=== PATIENT | male | born 1950 | race African-American/Black ===

== ENCOUNTER 2017-03-06 20:34 | Emergency (ER) | payer SELFPAY ==
[~2017-03-06] VITALS: Ht 172.7 cm; Wt 90.7 kg
[2017-03-06 20:44] VITALS: BP 189/106
== END 2017-03-06 20:48 | disposition left against medical advice (07) ==
LOC: ER 20:36
DX: T78.40XA Allergy, unspecified, initial encounter (principal); Z53.21 Procedure and treatment not carried out due to patient leaving prior to being seen by health care provider

== ENCOUNTER 2017-07-03 06:46 | Emergency (ER) | payer OTHER ==
[~2017-07-03] VITALS: Ht 172.7 cm; Wt 88.5 kg
[2017-07-03 06:59] VITALS: BP 150/96
== END 2017-07-03 12:51 | disposition left against medical advice (07) ==
LOC: ER 06:46
DX: S01.21XA Laceration without foreign body of nose, initial encounter (principal); Z53.21 Procedure and treatment not carried out due to patient leaving prior to being seen by health care provider; X58.XXXA Exposure to other specified factors, initial encounter; Y93.89 Activity, other specified; Y99.8 Other external cause status; Y92.89 Other specified places as the place of occurrence of the external cause

== ENCOUNTER → 2018-08-28 | Outpatient (CLI) | payer MEDICARE, OTHER ==
[2018-08-28 10:25] LABS: Basophils # (auto) 0 uL; Basophils % (auto) 0.9 % (0.0-2.0); Eosinophils # (auto) 0.3 uL; Eosinophils % (auto) 7.5 % (0.0-7.0); Hematocrit 38.9 % (41.0-53.0); Hemoglobin 12.6 g/dL (13.5-17.5); Lymphocytes # (auto) 1.5 uL; Lymphocytes % (auto) 38.3 % (10.0-50.0); Mean Corpuscular Hemoglobin 29.1 pg (28.0-32.0); Mean Corpuscular Hgb Conc. 32.4 g/dL (32.0-36.0); Mean Corpuscular Volume 89.7 fL (80.0-100.0); Monocytes # (auto) 0.6 uL; Monocytes % (auto) 14.6 % (0.0-12.0); Neutrophils # (auto) 1.5 uL; Neutrophils % (auto) 38.7 % (37.0-80.0); Nucleated Red Blood Cells % 0.1 %; Platelet Count (auto) 306 10^3/uL (140-450); Red Blood Cells 4.33 10^6/uL (4.5-5.90); Red Cell Distribution Width 14.8 % (11.8-14.3); White Blood Cell 3.8 10^3/uL (4.4-10.8)
[2018-08-28 11:05] LABS: Potassium 4.2 mmol/L (3.5-5.1)
[2018-08-28 11:35] LABS: Albumin 3.5 g/dL (3.4-5.0); BUN/Creatinine Ratio 9.5; Bilirubin, Total 0.2 mg/dL (0.2-1.0); Calcium 8.3 mg/dL (8.5-10.1); Total Protein 7.1 g/dL (6.4-8.2)
== END | disposition home or self-care (01) ==
LOC: LAB 10:00
PROVIDERS: ATTEND Physician Assistant
DX: E78.49 Other hyperlipidemia (principal); E53.8 Deficiency of other specified B group vitamins
CPT/HCPCS: 36415; 80053; 80061; 85025

== ENCOUNTER → 2019-05-22 | Outpatient (CLI) | payer MEDICARE, OTHER | END | disposition home or self-care (01) | LOC: LAB 07:33 | PROVIDERS: ATTEND Internal Medicine | DX: R10.9 Unspecified abdominal pain (principal) | CPT/HCPCS: 36415; 82565; 84520 ==

== ENCOUNTER → 2019-07-16 | Day surgery (SDC) | payer MEDICARE, OTHER ==
[2019-07-12 10:53] LABS: Urine WBC None Seen /hpf (0 - 3)
[2019-07-12 10:55] LABS: Basophils # (auto) 0 uL; Basophils % (auto) 0.7 % (0.0-2.0); Eosinophils # (auto) 0.3 uL; Eosinophils % (auto) 9.6 % (0.0-7.0); Hemoglobin 14.2 g/dL (13.5-17.5); Lymphocytes # (auto) 0.8 uL; Lymphocytes % (auto) 25.7 % (10.0-50.0); Mean Corpuscular Hemoglobin 29.7 pg (28.0-32.0); Mean Corpuscular Hgb Conc. 33.7 g/dL (32.0-36.0); Mean Corpuscular Volume 88.2 fL (80.0-100.0); Monocytes # (auto) 0.4 uL; Monocytes % (auto) 11.8 % (0.0-12.0); Neutrophils # (auto) 1.6 uL; Neutrophils % (auto) 52.2 % (37.0-80.0); Platelet Count (auto) 312 10^3/uL (140-450); Red Blood Cells 4.76 10^6/uL (4.5-5.90); Red Cell Distribution Width 13.2 % (11.8-14.3)
[2019-07-12 11:07] LABS: Urine Bacteria FEW /hpf (None Seen); Urine Blood Negative /uL (Negative); Urine Hyaline Cast FEW /lpf (0 - 2); Urine Specific Gravity 1.013 (1.001-1.035)
[2019-07-12 11:10] LABS: INR 0.99 (0.9-1.15); Partial Thromboplastin Time 28.2 sec (23.64-32.05)
[2019-07-12 11:22] LABS: Albumin 3.6 g/dL (3.4-5.0); Calcium 9.1 mg/dL (8.5-10.1); Potassium 4.2 mmol/L (3.5-5.1)
[2019-07-12 11:27] LABS: BUN/Creatinine Ratio 7.1; Bilirubin, Total 0.4 mg/dL (0.2-1.0); Total Protein 7.9 g/dL (6.4-8.2)
[~2019-07-16] VITALS: Ht 172.7 cm; Wt 86.2 kg
[~2019-07-16] MED LIST: ATOR40TA52 PO; CETI10TA80 PO; CHOL100055 PO; DICL1GEL35 TD; DOXE10CA PO; FERR324T17 PO; HYDROmorphone HCL 2 MG/ML VL IV PRN; LIDOCAINE 1% HCL (LOCAL ANESTH.) INJ 20ML MDV ONE; MIDAZOLAM HCL 1MG/1ML-2 ML VIAL ONE; ONDANSETRON HCL 4 MG/2 ML VIAL IV PRN; ONDANSETRON HCL 4 MG/2 ML VIAL ONE; PREG150C PO; PROPOFOL 10 MG/ML 20 ML IV ONE; SILD100T57 PO; SODIUM CHLORIDE LOCK 10 ML ONE; SUCCINYLCHOLINE CHLORIDE 20 MG/ML 10ML VIAL IV ONE; fentaNYL CITRATE 100 MCG/2 ML VL IV PRN; fentaNYL CITRATE 100 MCG/2 ML VL ONE
[2019-07-16 10:47] VITALS: BP 120/82
== END | disposition home or self-care (01) ==
LOC: GI 08:26
PROVIDERS: ATTEND Internal Medicine Gastroenterology
DX: Z12.11 Encounter for screening for malignant neoplasm of colon (principal); K57.30 Diverticulosis of large intestine without perforation or abscess without bleeding; I12.9 Hypertensive chronic kidney disease with stage 1 through stage 4 chronic kidney disease, or unspecified chronic kidney disease; N18.2 Chronic kidney disease, stage 2 (mild); D64.9 Anemia, unspecified; E78.5 Hyperlipidemia, unspecified; F32.9 Major depressive disorder, single episode, unspecified; G89.29 Other chronic pain; Z88.5 Allergy status to narcotic agent; Z91.013 Allergy to seafood; Z98.890 Other specified postprocedural states; Z96.653 Presence of artificial knee joint, bilateral
CPT/HCPCS: 36415; 80053; 81001; 85025; 85610; 85730; 93005; G0121; J0330; J2001; J2250; J2405; J2704; J3010; J7030

== ENCOUNTER 2019-11-15 18:19 | Inpatient (IN) | payer MEDICARE, OTHER ==
[~2019-11-15] VITALS: Ht 172.7 cm; Wt 92.0 kg
[~2019-11-15 18:19] MED LIST changes: -HYDROmorphone HCL 2 MG/ML VL IV PRN; -LIDOCAINE 1% HCL (LOCAL ANESTH.) INJ 20ML MDV ONE; -MIDAZOLAM HCL 1MG/1ML-2 ML VIAL ONE; -ONDANSETRON HCL 4 MG/2 ML VIAL IV PRN; -ONDANSETRON HCL 4 MG/2 ML VIAL ONE; -PROPOFOL 10 MG/ML 20 ML IV ONE; -SODIUM CHLORIDE LOCK 10 ML ONE; -SUCCINYLCHOLINE CHLORIDE 20 MG/ML 10ML VIAL IV ONE; -fentaNYL CITRATE 100 MCG/2 ML VL IV PRN; -fentaNYL CITRATE 100 MCG/2 ML VL ONE
[2019-11-15] MEDS ORDERED: ONDANSETRON HCL 4 MG/2 ML VIAL IV ONE (19:30)
[2019-11-15] MEDS ORDERED: HYDROmorphone HCL 2 MG/ML VL IV ONE (19:30)
[2019-11-15] MEDS ORDERED: ASPirin 81 mg TAB PO ONE (19:30)
[2019-11-15 19:51] LABS: Basophils # (auto) 0 10 ^3/uL (0-0.2); Basophils % (auto) 0.5 % (0.0-2.0); Eosinophils # (auto) 0.2 10 ^3/uL (0-0.8); Eosinophils % (auto) 3.6 % (0.0-7.0); Lymphocytes # (auto) 1.2 10 ^3/uL (0.4-5.4); Mean Corpuscular Hemoglobin 28.8 pg (28.0-32.0); Mean Corpuscular Hgb Conc. 32.5 g/dL (32.0-36.0); Mean Corpuscular Volume 88.4 fL (80.0-100.0); Monocytes # (auto) 0.5 10 ^3/uL (0-1.3); Monocytes % (auto) 10.9 % (0.0-12.0); Neutrophils # (auto) 2.9 10 ^3/uL (1.6-8.6); Platelet Count (auto) 300 10^3/uL (140-450); Red Blood Cells 4.53 10^6/uL (4.5-5.90); Red Cell Distribution Width 13.4 % (11.8-14.3); White Blood Cell 4.8 10^3/uL (4.4-10.8)
[2019-11-15 20:02] LABS: Albumin 3.2 g/dL (3.4-5.0); Anion Gap 4 (5-15); Blood Urea Nitrogen 14 mg/dL (7-18); Calcium 8.5 mg/dL (8.5-10.1); Carbon Dioxide 27 mmol/L (21-32); Chloride 110 mmol/L (98-107); Glucose 116 mg/dL (74-106); Sodium 141 mmol/L (136-145)
[2019-11-15 20:07] LABS: Alanine Aminotransferase 27 U/L (16-61); Alkaline Phosphatase 110 U/L (45-117); Aspartate Aminotransferase 20 U/L (15-37); BUN/Creatinine Ratio 10.9; Bilirubin, Total 0.4 mg/dL (0.2-1.0); GFR African American 72 mL/min; GFR Non-African American 60 mL/min; Total Protein 7.2 g/dL (6.4-8.2)
[2019-11-15] MEDS ORDERED: ACETAMINOPHEN 325 MG TAB PO PRN (21:00)
[2019-11-15] MEDS ORDERED: ONDANSETRON HCL 4 MG/2 ML VIAL IV PRN (21:00)
[2019-11-15] MEDS ORDERED: TEMAZEPAM 15 MG CAP PO PRN (21:00)
[2019-11-15] MEDS ORDERED: NITROGLYCERIN 0.4 MG SL TAB SL PRN (21:15)
[2019-11-15] MEDS ORDERED: IOHEXOL 350 MG/ML 100ML IJ ONE (21:25)
[2019-11-15] MEDS: FAMOTIDINE 20 MG TAB PO SCH (22:19)
[2019-11-15] MEDS: ATORVASTATIN 20 MG TAB PO SCH (22:19)
[2019-11-15] MEDS: METOPROLOL TARTRATE 25 MG TAB PO SCH (22:19)
[2019-11-15] MEDS ORDERED: DOCU100T15 PO (23:54)
[2019-11-15] MEDS ORDERED: TIZA4CAP7 PO (23:54)
[2019-11-15] MEDS ORDERED: TRAZ50TA2 PO (23:54)
[2019-11-15] MEDS ORDERED: TURM500C3 OR (23:54)
[2019-11-15] MEDS ORDERED: ASCO500C5 OR (23:54)
[2019-11-15] MEDS ORDERED: NORT25CA PO (23:54)
[2019-11-15] MEDS ORDERED: POTA99TA5 PO (23:54)
[2019-11-15] MEDS ORDERED: HYDR-4902 PO (23:54)
[2019-11-15] MEDS: HYDROcodone-ACET 5/325MG TAB PO PRN (23:57)
[2019-11-16 05:00] VITALS: BP 117/81
[2019-11-16 07:09] LABS: Basophils # (auto) 0 10 ^3/uL (0-0.2); Basophils % (auto) 0.6 % (0.0-2.0); Eosinophils # (auto) 0.2 10 ^3/uL (0-0.8); Eosinophils % (auto) 3.1 % (0.0-7.0); Hematocrit 36.4 % (41.0-53.0); Hemoglobin 12.5 g/dL (13.5-17.5); Lymphocytes # (auto) 1.4 10 ^3/uL (0.4-5.4); Lymphocytes % (auto) 27.9 % (10.0-50.0); Mean Corpuscular Hemoglobin 30.3 pg (28.0-32.0); Mean Corpuscular Hgb Conc. 34.2 g/dL (32.0-36.0); Mean Corpuscular Volume 88.4 fL (80.0-100.0); Monocytes # (auto) 0.7 10 ^3/uL (0-1.3); Monocytes % (auto) 14.4 % (0.0-12.0); Neutrophils # (auto) 2.7 10 ^3/uL (1.6-8.6); Nucleated Red Blood Cells % 0.1 %; Platelet Count (auto) 294 10^3/uL (140-450); Red Blood Cells 4.12 10^6/uL (4.5-5.90); Red Cell Distribution Width 13.7 % (11.8-14.3); White Blood Cell 5.1 10^3/uL (4.4-10.8)
[2019-11-16 07:28] LABS: BUN/Creatinine Ratio 10.3; Calcium 8.8 mg/dL (8.5-10.1); Potassium 4.4 mmol/L (3.5-5.1)
[2019-11-16 08:00] VITALS: BP 130/80
[2019-11-16] MEDS: HYDROcodone-ACET 5/325MG TAB PO PRN ×2 (08:21→18:43)
[2019-11-16] MEDS: FAMOTIDINE 20 MG TAB PO SCH ×2 (08:26→22:15)
[2019-11-16] MEDS: METOPROLOL TARTRATE 25 MG TAB PO SCH (08:26)
[2019-11-16] MEDS: ASPirin 81 mg TAB PO SCH (08:26)
[2019-11-16 09:00] VITALS: BP 127/75
[2019-11-16 13:00] VITALS: BP 127/78
[2019-11-16 17:00] VITALS: BP 149/95
[2019-11-16 22:00] VITALS: BP 127/79
[2019-11-16] MEDS: ATORVASTATIN 20 MG TAB PO SCH (22:15)
[2019-11-17 05:00] VITALS: BP 145/90
[2019-11-17 09:00] VITALS: BP 126/82
[2019-11-17] MEDS: FAMOTIDINE 20 MG TAB PO SCH (10:39)
[2019-11-17] MEDS: ASPirin 81 mg TAB PO SCH (10:39)
[2019-11-17 13:00] VITALS: BP 141/89
[2019-11-17] MEDS ORDERED: AMLO10TA13 PO (16:08)
[2019-11-17 16:26] VITALS: BP 130/80
== END 2019-11-17 17:10 | disposition home or self-care (01) | DRG 313 ==
LOC: ER 18:19 → TELE 18:20 → TELE-WESTW 22:35
PROVIDERS: ADMIT Nurse Practitioner; ATTEND Internal Medicine Nephrology
DX: R07.89 Other chest pain (principal); E44.1 Mild protein-calorie malnutrition; I10 Essential (primary) hypertension; Z96.653 Presence of artificial knee joint, bilateral; G89.29 Other chronic pain; M54.2 Cervicalgia; R00.1 Bradycardia, unspecified; Z88.5 Allergy status to narcotic agent; Z91.013 Allergy to seafood; Z79.899 Other long term (current) drug therapy; Z83.3 Family history of diabetes mellitus
CPT/HCPCS: 36415; 71046; 71275; 80048; 80053; 83880; 84439; 84443; 84484; 85025; 85379; 93306; 96374; 96375; G0378; J2405

== ENCOUNTER 2020-05-25 15:32 | Inpatient (IN) | payer MEDICARE, OTHER ==
[~2020-05-25] VITALS: Ht 172.7 cm; Wt 94.5 kg
[~2020-05-25 15:32] MED LIST changes: -CETI10TA80 PO; -DICL1GEL35 TD; +DOCU100T15 PO; +HYDR-4902 PO; +NORT25CA PO; -SILD100T57 PO; +TRAZ50TA2 PO
[2020-05-25] MEDS ORDERED: ASPirin 81 mg TAB PO ONE (16:00)
[2020-05-25 17:09] LABS: Basophils # (auto) 0 10 ^3/uL (0-0.2); Basophils % (auto) 0.6 % (0.0-2.0); Eosinophils # (auto) 0.2 10 ^3/uL (0-0.8); Hematocrit 37.9 % (41.0-53.0); Hemoglobin 12.5 g/dL (13.5-17.5); Lymphocytes % (auto) 20.7 % (10.0-50.0); Mean Corpuscular Hemoglobin 29.8 pg (28.0-32.0); Mean Corpuscular Volume 90.5 fL (80.0-100.0); Monocytes # (auto) 0.7 10 ^3/uL (0-1.3); Monocytes % (auto) 13.2 % (0.0-12.0); Neutrophils # (auto) 3.1 10 ^3/uL (1.6-8.6); Neutrophils % (auto) 61.5 % (37.0-80.0); Platelet Count (auto) 271 10^3/uL (140-450); Red Blood Cells 4.19 10^6/uL (4.5-5.90); Red Cell Distribution Width 13.7 % (11.8-14.3); White Blood Cell 5.1 10^3/uL (4.4-10.8)
[2020-05-25 17:17] LABS: Alanine Aminotransferase 28 U/L (16-61); Albumin 3.4 g/dL (3.4-5.0); Anion Gap 2 (5-15); Aspartate Aminotransferase 17 U/L (15-37); BUN/Creatinine Ratio 8.5; Blood Urea Nitrogen 12 mg/dL (7-18); Calcium 8.7 mg/dL (8.5-10.1); Carbon Dioxide 29 mmol/L (21-32); Chloride 108 mmol/L (98-107); GFR African American 64 mL/min; GFR Non-African American 53 mL/min; Glucose 91 mg/dL (74-106); Magnesium 2.4 mg/dL (1.6-2.6); Potassium 4.5 mmol/L (3.5-5.1); Sodium 139 mmol/L (136-145)
[2020-05-25 18:10] LABS: Alkaline Phosphatase 81 U/L (45-117); Bilirubin, Total 0.4 mg/dL (0.2-1.0); Total Protein 7.1 g/dL (6.4-8.2)
[2020-05-25] MEDS ORDERED: ACETAMINOPHEN 325 MG TAB PO PRN (18:30)
[2020-05-25] MEDS ORDERED: Docusate Sodium 250 MG PO PRN (18:30)
[2020-05-25] MEDS ORDERED: ZOLPIDEM TARTRATE 5 MG TAB PO PRN (18:30)
[2020-05-25] MEDS ORDERED: NITROGLYCERIN 0.4 MG SL TAB SL PRN (18:30)
[2020-05-25] MEDS ORDERED: ONDANSETRON HCL 4 MG/2 ML VIAL IV PRN (18:30)
[2020-05-25] MEDS ORDERED: MORPHINE SULF INJ 2 MG/ML SYRINGE 1ML IV PRN (18:30)
[2020-05-25] MEDS ORDERED: DOXEPIN HCL 10 MG CAP PO SCH (22:00)
[2020-05-25] MEDS: CARVEDILOL 3.125 MG TAB PO SCH (22:00)
[2020-05-25] MEDS: SODIUM CHLORIDE 0.9% 1,000 ML IV SCH (22:53)
[2020-05-25] MEDS: ATORVASTATIN 20 MG TAB PO SCH (22:53)
[2020-05-25] MEDS: PREGABALIN CAPSULE 75 MG CAP PO SCH (22:53)
[2020-05-25] MEDS: HYDROcodone-ACET 5/325MG TAB PO PRN (22:54)
[2020-05-26 06:26] LABS: Basophils # (auto) 0 10 ^3/uL (0-0.2); Basophils % (auto) 0.8 % (0.0-2.0); Eosinophils # (auto) 0.3 10 ^3/uL (0-0.8); Eosinophils % (auto) 6.4 % (0.0-7.0); Hematocrit 34.2 % (41.0-53.0); Hemoglobin 11.3 g/dL (13.5-17.5); Lymphocytes # (auto) 1.3 10 ^3/uL (0.4-5.4); Lymphocytes % (auto) 32.3 % (10.0-50.0); Monocytes # (auto) 0.7 10 ^3/uL (0-1.3); Monocytes % (auto) 16.1 % (0.0-12.0); Neutrophils # (auto) 1.8 10 ^3/uL (1.6-8.6); Neutrophils % (auto) 44.4 % (37.0-80.0); Platelet Count (auto) 235 10^3/uL (140-450); Red Blood Cells 3.76 10^6/uL (4.5-5.90); Red Cell Distribution Width 13.8 % (11.8-14.3); White Blood Cell 4.1 10^3/uL (4.4-10.8)
[2020-05-26 06:35] LABS: Potassium 3.7 mmol/L (3.5-5.1)
[2020-05-26 06:44] LABS: BUN/Creatinine Ratio 9.7; Calcium 8.5 mg/dL (8.5-10.1)
[2020-05-26] MEDS ORDERED: PNEUMOCOCCAL VACC POLYS 25 MCG/0.5 ML VIAL IM ONE (07:00)
[2020-05-26 09:04] VITALS: BP 125/93
[2020-05-26] MEDS: FERROUS GLUCONATE 324 MG PO SCH (10:00)
[2020-05-26] MEDS: CARVEDILOL 3.125 MG TAB PO SCH ×2 (10:00→21:28)
[2020-05-26] MEDS: DOCUSATE SOD 100 MG CAP PO SCH (11:28)
[2020-05-26] MEDS: ASPirin 81 mg TAB PO SCH (11:28)
[2020-05-26] MEDS: CLOPIDOGREL BISULFATE 75 MG TAB PO SCH (11:28)
[2020-05-26] MEDS: PREGABALIN CAPSULE 75 MG CAP PO SCH ×2 (11:29→21:11)
[2020-05-26] MEDS: LISINOPRIL 5 MG TAB PO SCH (11:29)
[2020-05-26] MEDS: CHOLECALCIFEROL (VITD3) 1,000UNIT=25mCg TAB PO SCH (11:31)
[2020-05-26] MEDS ORDERED: IBU600T PO (11:39)
[2020-05-26] MEDS ORDERED: OPTISON 3ml Vial for INJ IV ONE (14:00)
[2020-05-26] MEDS: SODIUM CHLORIDE 0.9% 1,000 ML IV SCH ×2 (14:27→21:10)
[2020-05-26] MEDS ORDERED: CETI10CH PO (15:12)
[2020-05-26] MEDS ORDERED: OMEP20TA PO (15:12)
[2020-05-26] MEDS ORDERED: ASPI325T4 PO (15:12)
[2020-05-26] MEDS ORDERED: MICO2CRE EX (15:12)
[2020-05-26] MEDS ORDERED: ACET-1156 PO (15:12)
[2020-05-26] MEDS ORDERED: LIDO5PAD8 EX (15:12)
[2020-05-26] MEDS ORDERED: AML5T PO (15:12)
[2020-05-26] MEDS ORDERED: [UNRECOGNIZED DRUG - CODE] EX (15:12)
[2020-05-26 17:00] VITALS: BP 117/72
[2020-05-26] MEDS: NORTRIPTYLINE HCL 25 MG CAP PO SCH (18:31)
[2020-05-26] MEDS: traZODone HCL 50 MG TAB PO SCH (18:31)
[2020-05-26] MEDS: ATORVASTATIN 20 MG TAB PO SCH (21:11)
[2020-05-26] MEDS: HYDROcodone-ACET 5/325MG TAB PO PRN (21:22)
[2020-05-26 22:00] VITALS: BP 134/78
[2020-05-27 05:00] VITALS: BP 117/71
[2020-05-27] MEDS: SODIUM CHLORIDE 0.9% 1,000 ML IV SCH ×2 (05:33→22:19)
[2020-05-27] MEDS ORDERED: ADENOSINE 76 MG in GIVE UN-DILUTED 0 ML IV STA (08:10)
[2020-05-27 09:00] VITALS: BP 119/79
[2020-05-27] MEDS: CARVEDILOL 3.125 MG TAB PO SCH ×2 (10:00→22:00)
[2020-05-27] MEDS: FERROUS GLUCONATE 324 MG PO SCH (10:00)
[2020-05-27] MEDS: DOCUSATE SOD 100 MG CAP PO SCH (10:01)
[2020-05-27] MEDS: ASPirin 81 mg TAB PO SCH (10:01)
[2020-05-27] MEDS: PREGABALIN CAPSULE 75 MG CAP PO SCH ×2 (10:01→22:19)
[2020-05-27] MEDS: CLOPIDOGREL BISULFATE 75 MG TAB PO SCH (10:02)
[2020-05-27] MEDS: CHOLECALCIFEROL (VITD3) 1,000UNIT=25mCg TAB PO SCH (10:02)
[2020-05-27] MEDS: LISINOPRIL 5 MG TAB PO SCH (10:03)
[2020-05-27 11:07] VITALS: BP 124/78
[2020-05-27 13:00] VITALS: BP 120/77
[2020-05-27] MEDS: HYDROcodone-ACET 5/325MG TAB PO PRN (14:02)
[2020-05-27] MEDS: KETOROLAC TROMETH 30 MG/ML 1ML VIAL IV PRN ×2 (15:53→22:00)
[2020-05-27 16:35] VITALS: BP 120/77
[2020-05-27] MEDS: NORTRIPTYLINE HCL 25 MG CAP PO SCH (18:00)
[2020-05-27] MEDS: traZODone HCL 50 MG TAB PO SCH (18:01)
[2020-05-27 22:00] VITALS: BP 90/61
[2020-05-27] MEDS: ATORVASTATIN 20 MG TAB PO SCH (22:19)
[2020-05-28 05:00] VITALS: BP 103/73
[2020-05-28 09:13] VITALS: BP 101/72
[2020-05-28] MEDS: CARVEDILOL 3.125 MG TAB PO SCH (10:00)
[2020-05-28] MEDS: FERROUS GLUCONATE 324 MG PO SCH (10:00)
[2020-05-28] MEDS: CLOPIDOGREL BISULFATE 75 MG TAB PO SCH (10:16)
[2020-05-28] MEDS: PREGABALIN CAPSULE 75 MG CAP PO SCH ×2 (10:16→21:26)
[2020-05-28] MEDS: ASPirin 81 mg TAB PO SCH (10:16)
[2020-05-28] MEDS: DOCUSATE SOD 100 MG CAP PO SCH (10:17)
[2020-05-28] MEDS: LISINOPRIL 5 MG TAB PO SCH (10:17)
[2020-05-28] MEDS: CHOLECALCIFEROL (VITD3) 1,000UNIT=25mCg TAB PO SCH (10:18)
[2020-05-28] MEDS: KETOROLAC TROMETH 30 MG/ML 1ML VIAL IV PRN ×2 (11:25→21:06)
[2020-05-28 13:00] VITALS: BP 125/77
[2020-05-28] MEDS: SODIUM CHLORIDE 0.9% 1,000 ML IV SCH (13:10)
[2020-05-28 17:28] VITALS: BP 121/87
[2020-05-28] MEDS: NORTRIPTYLINE HCL 25 MG CAP PO SCH (18:49)
[2020-05-28] MEDS: traZODone HCL 50 MG TAB PO SCH (18:49)
[2020-05-28] MEDS: ATORVASTATIN 20 MG TAB PO SCH (21:26)
[2020-05-28 22:00] VITALS: BP 116/71
[2020-05-29] MEDS: SODIUM CHLORIDE 0.9% 1,000 ML IV SCH (01:37)
[2020-05-29 05:00] VITALS: BP 104/68
[2020-05-29 08:44] VITALS: BP 124/72
[2020-05-29] MEDS: FERROUS GLUCONATE 324 MG PO SCH (10:00)
[2020-05-29] MEDS: ASPirin 81 mg TAB PO SCH (11:36)
[2020-05-29] MEDS: DOCUSATE SOD 100 MG CAP PO SCH (11:37)
[2020-05-29] MEDS: PREGABALIN CAPSULE 75 MG CAP PO SCH ×2 (11:37→21:29)
[2020-05-29] MEDS: CLOPIDOGREL BISULFATE 75 MG TAB PO SCH (11:37)
[2020-05-29] MEDS: CHOLECALCIFEROL (VITD3) 1,000UNIT=25mCg TAB PO SCH (11:37)
[2020-05-29] MEDS: LISINOPRIL 5 MG TAB PO SCH (11:38)
[2020-05-29] MEDS: KETOROLAC TROMETH 30 MG/ML 1ML VIAL IV PRN ×3 (12:42→23:07)
[2020-05-29 13:00] VITALS: BP 139/87
[2020-05-29 16:39] VITALS: BP 117/79
[2020-05-29] MEDS: traZODone HCL 50 MG TAB PO SCH (18:28)
[2020-05-29] MEDS: NORTRIPTYLINE HCL 25 MG CAP PO SCH (18:29)
[2020-05-29] MEDS: ATORVASTATIN 20 MG TAB PO SCH (21:29)
[2020-05-29 22:00] VITALS: BP 109/77
[2020-05-30 05:00] VITALS: BP 123/87
[2020-05-30 09:00] VITALS: BP 140/84
[2020-05-30] MEDS: FERROUS GLUCONATE 324 MG PO SCH (10:00)
[2020-05-30] MEDS: CLOPIDOGREL BISULFATE 75 MG TAB PO SCH (10:19)
[2020-05-30] MEDS: DOCUSATE SOD 100 MG CAP PO SCH (10:19)
[2020-05-30] MEDS: PREGABALIN CAPSULE 75 MG CAP PO SCH ×2 (10:19→21:45)
[2020-05-30] MEDS: ASPirin 81 mg TAB PO SCH (10:19)
[2020-05-30] MEDS: CHOLECALCIFEROL (VITD3) 1,000UNIT=25mCg TAB PO SCH (10:20)
[2020-05-30] MEDS: LISINOPRIL 5 MG TAB PO SCH (10:20)
[2020-05-30 12:32] VITALS: BP 149/98
[2020-05-30 16:45] VITALS: BP 119/73
[2020-05-30] MEDS: traZODone HCL 50 MG TAB PO SCH (18:38)
[2020-05-30] MEDS: NORTRIPTYLINE HCL 25 MG CAP PO SCH (18:38)
[2020-05-30] MEDS: ATORVASTATIN 20 MG TAB PO SCH (21:45)
[2020-05-30 22:00] VITALS: BP 90/59
[2020-05-31 05:00] VITALS: BP 104/72
[2020-05-31 08:00] VITALS: BP 144/94
[2020-05-31 09:00] VITALS: BP 144/94
[2020-05-31] MEDS: FERROUS GLUCONATE 324 MG PO SCH (10:00)
[2020-05-31] MEDS: CHOLECALCIFEROL (VITD3) 1,000UNIT=25mCg TAB PO SCH (10:11)
[2020-05-31] MEDS: PREGABALIN CAPSULE 75 MG CAP PO SCH (10:13)
[2020-05-31] MEDS: DOCUSATE SOD 100 MG CAP PO SCH (10:13)
[2020-05-31] MEDS: LISINOPRIL 5 MG TAB PO SCH (10:13)
[2020-05-31] MEDS: CLOPIDOGREL BISULFATE 75 MG TAB PO SCH (10:13)
[2020-05-31] MEDS: ASPirin 81 mg TAB PO SCH (10:14)
== END 2020-05-31 13:50 | disposition home or self-care (01) | DRG 303 ==
LOC: ER 15:34 → TELE 15:35 → TELE-CENTR 22:33 → TELE-WESTW 05-26 13:20
PROVIDERS: ADMIT Hospitalist; ATTEND Family Medicine
DX: I25.10 Atherosclerotic heart disease of native coronary artery without angina pectoris (principal); I24.9 Acute ischemic heart disease, unspecified; I10 Essential (primary) hypertension; E78.5 Hyperlipidemia, unspecified; E78.00 Pure hypercholesterolemia, unspecified; G89.4 Chronic pain syndrome; F32.9 Major depressive disorder, single episode, unspecified; G62.9 Polyneuropathy, unspecified; M19.90 Unspecified osteoarthritis, unspecified site; Z79.82 Long term (current) use of aspirin; Z82.3 Family history of stroke; Z82.49 Family history of ischemic heart disease and other diseases of the circulatory system; Z88.5 Allergy status to narcotic agent; Z91.013 Allergy to seafood; Z79.899 Other long term (current) drug therapy; Z79.891 Long term (current) use of opiate analgesic
CPT/HCPCS: 36415; 71046; 72125; 78452; 80048; 80053; 80061; 83735; 83880; 84484; 85025; 93005; 93017; 93352; 96374; G0378; J0153; J1885; Q9956

== ENCOUNTER 2022-06-20 11:21 | Inpatient (IN) | payer MEDICARE, OTHER ==
[~2022-06-20] VITALS: Ht 172.7 cm; Wt 106.3 kg
[~2022-06-20 11:21] MED LIST changes: +ACET-1156 PO; +AML5T PO; +ASPI325T4 PO; +CETI10CH PO; +IBUP600T28 PO; +LIDO5PAD8 EX; +MICO2CRE EX; +OMEP20TA PO; +[UNRECOGNIZED DRUG - CODE] EX
[2022-06-20] MEDS ORDERED: NITROGLYCERIN 0.4 MG SL TAB SL ONE (12:00)
[2022-06-20] MEDS ORDERED: ASPirin 325 MG TAB PO ONE (12:00)
[2022-06-20 12:01] LABS: Basophils # (auto) 0 10 ^3/uL (0-0.2); Basophils % (auto) 0.7 % (0.0-2.0); Eosinophils # (auto) 0.1 10 ^3/uL (0-0.8); Eosinophils % (auto) 2.4 % (0.0-7.0); Hematocrit 40.5 % (41.0-53.0); Hemoglobin 13.3 g/dL (13.5-17.5); Lymphocytes % (auto) 20.5 % (10.0-50.0); Mean Corpuscular Hemoglobin 28.5 pg (28.0-32.0); Mean Corpuscular Volume 86.5 fL (80.0-100.0); Monocytes # (auto) 0.5 10 ^3/uL (0-1.3); Neutrophils # (auto) 3.1 10 ^3/uL (1.6-8.6); Neutrophils % (auto) 66.4 % (37.0-80.0); Red Blood Cells 4.68 10^6/uL (4.5-5.90); Red Cell Distribution Width 14.2 % (11.8-14.3); White Blood Cell 4.7 10^3/uL (4.4-10.8)
[2022-06-20 12:26] LABS: Albumin 3.3 g/dL (3.4-5.0); BUN/Creatinine Ratio 11.3; Calcium 9.1 mg/dL (8.5-10.1); Potassium 4.1 mmol/L (3.5-5.1)
[2022-06-20 12:28] LABS: Bilirubin, Total 0.7 mg/dL (0.2-1.0); Total Protein 7.6 g/dL (6.4-8.2)
[2022-06-20 12:49] LABS: INR 0.98 (0.9-1.15); Partial Thromboplastin Time 27.3 sec (24.6-33.4)
[2022-06-20] MEDS ORDERED: ENOXAPARIN SOD 80 MG/0.8ML SYRINGE SC ONE (13:30)
[2022-06-20] MEDS ORDERED: IOHEXOL 350 MG/ML 100ML IJ ONE (14:27)
[2022-06-20] MEDS ORDERED: ACETAMINOPHEN 325 MG TAB PO PRN (18:15)
[2022-06-20] MEDS ORDERED: NITROGLYCERIN 0.4 MG SL TAB SL PRN (18:15)
[2022-06-20] MEDS ORDERED: MORPHINE SULFATE INJ 2 MG/ml SYRG IV PRN (18:15)
[2022-06-20 19:17] LABS: Cholesterol 121 mg/dL (< 200)
[2022-06-20 19:19] LABS: HDL Cholesterol 56 mg/dL (40-59); LDL Cholesterol 65 mg/dL (< 100); Triglycerides 52 mg/dL (< 150)
[2022-06-21 05:45] LABS: Albumin 3.3 g/dL (3.4-5.0); Calcium 9.4 mg/dL (8.5-10.1); Potassium 4.5 mmol/L (3.5-5.1)
[2022-06-21 05:47] LABS: Basophils # (auto) 0 10 ^3/uL (0-0.2); Basophils % (auto) 0.8 % (0.0-2.0); Eosinophils # (auto) 0.2 10 ^3/uL (0-0.8); Eosinophils % (auto) 4.8 % (0.0-7.0); Hematocrit 39.1 % (41.0-53.0); Hemoglobin 12.7 g/dL (13.5-17.5); Lymphocytes % (auto) 23.6 % (10.0-50.0); Mean Corpuscular Hemoglobin 28.3 pg (28.0-32.0); Mean Corpuscular Hgb Conc. 32.6 g/dL (32.0-36.0); Mean Corpuscular Volume 86.9 fL (80.0-100.0); Monocytes # (auto) 0.5 10 ^3/uL (0-1.3); Monocytes % (auto) 10.7 % (0.0-12.0); Neutrophils # (auto) 2.6 10 ^3/uL (1.6-8.6); Neutrophils % (auto) 60.1 % (37.0-80.0); Nucleated Red Blood Cells % 0.1 %; Red Blood Cells 4.49 10^6/uL (4.5-5.90); White Blood Cell 4.3 10^3/uL (4.4-10.8)
[2022-06-21 05:50] LABS: BUN/Creatinine Ratio 13.5; Bilirubin, Total 0.4 mg/dL (0.2-1.0); Total Protein 7.3 g/dL (6.4-8.2)
[2022-06-21] MEDS: HYDROcodone-ACET 5/325MG TAB PO PRN ×2 (06:23→12:44)
[2022-06-21] MEDS ORDERED: ENOXAPARIN SOD 40 MG/0.4 ML SYRINGE SC SCH (10:00)
[2022-06-21] MEDS: ASPirin 81 mg TAB PO SCH (10:43)
[2022-06-21] MEDS ORDERED: PANTOPRAZOLE 40 MG TAB PO ONE (12:45)
[2022-06-21] MEDS ORDERED: PREGABALIN CAPSULE 75 MG CAP PO ONE (12:45)
[2022-06-21 13:00] VITALS: BP 141/86
[2022-06-21] MEDS ORDERED: DULO60CA PO (14:12)
[2022-06-21] MEDS ORDERED: TIZA4TAB9 PO (14:12)
[2022-06-21] MEDS ORDERED: METH500T22 PO (14:12)
[2022-06-21] MEDS ORDERED: TRIA0.1P17 TOP (14:12)
[2022-06-21 17:00] VITALS: BP 147/87
[2022-06-21 17:59] LABS: Hepatitis C Antibody Negative (Negative)
[2022-06-21] MEDS: PREGABALIN CAPSULE 75 MG CAP PO SCH (21:02)
[2022-06-21 22:00] VITALS: BP 114/74
[2022-06-21] MEDS ORDERED: traZODone HCL 50 MG TAB PO SCH (22:00)
[2022-06-21] MEDS ORDERED: ATORVASTATIN 20 MG TAB PO SCH (22:00)
[2022-06-22 05:00] VITALS: BP 125/74
[2022-06-22 06:28] LABS: BUN/Creatinine Ratio 13.4; Calcium 8.7 mg/dL (8.5-10.1); Potassium 4.2 mmol/L (3.5-5.1)
[2022-06-22 09:16] VITALS: BP 132/84
[2022-06-22] MEDS: ASPirin 81 mg TAB PO SCH (09:52)
[2022-06-22] MEDS: PREGABALIN CAPSULE 75 MG CAP PO SCH (09:53)
[2022-06-22] MEDS ORDERED: PANTOPRAZOLE 40 MG TAB PO SCH (10:00)
[2022-06-22] MEDS ORDERED: HYDR-4902 PO (11:50)
[2022-06-22 13:02] VITALS: BP 114/70
[2022-06-22 13:15] VITALS: BP 114/70
== END 2022-06-22 16:40 | disposition home or self-care (01) | DRG 313 ==
LOC: ER 11:21 → TELE 18:05 → TELE-WESTW 06-21 11:01
PROVIDERS: ADMIT Registered Nurse; ATTEND Internal Medicine
DX: R07.89 Other chest pain (principal); N17.0 Acute kidney failure with tubular necrosis; E78.5 Hyperlipidemia, unspecified; I10 Essential (primary) hypertension; M79.602 Pain in left arm; Z20.822 Contact with and (suspected) exposure to COVID-19; K44.9 Diaphragmatic hernia without obstruction or gangrene; K57.30 Diverticulosis of large intestine without perforation or abscess without bleeding; M19.90 Unspecified osteoarthritis, unspecified site; R53.1 Weakness; R73.03 Prediabetes; Z91.013 Allergy to seafood; Z88.5 Allergy status to narcotic agent; Z83.3 Family history of diabetes mellitus; Z82.49 Family history of ischemic heart disease and other diseases of the circulatory system; Z82.3 Family history of stroke
CPT/HCPCS: 36415; 71045; 71275; 80048; 80053; 80061; 83036; 84443; 84484; 85025; 85379; 85610; 85730; 86803; 87081; 87340; 87426; 93005; 93306; 96372; G0378